=== PATIENT | female | born 1945 | race Caucasian/White ===

== ENCOUNTER 2018-05-07 07:08 | Emergency (ER) | payer MEDICARE, OTHER ==
[~2018-05-07] VITALS: Ht 160 cm; Wt 73.5 kg
[2018-05-07 07:39] LABS: BASO # 0.1 x10^3/uL (0.0-0.2); BASO % 1 % (0-3); EOS # 0.2 x10^3/uL (0.0-0.7); EOS % 3 % (0-3); HEMATOCRIT 42.7 % (36.0-47.0); HEMOGLOBIN 14.3 g/dL (12.0-15.5); LYMPH # 2.1 x10^3/uL (1.0-4.8); LYMPH % 28 % (24-48); MEAN CORPUSCULAR HEMOGLOBIN 27 pg (25-35); MEAN CORPUSCULAR HGB CONC 34 g/dL (31-37); MEAN CORPUSCULAR VOLUME 82 fL (79-100); MONO # 0.6 x10^3/uL (0.0-1.1); MONO % 8 % (0-9); NEUT # 4.5 x10^3uL (1.8-7.7); NEUT % 59 % (31-73); PLATELET COUNT 251 x10^3/uL (140-400); RED BLOOD COUNT 5.23 x10^6/uL (3.50-5.40); RED CELL DISTRIBUTION WIDTH 14.8 % (11.5-14.5); WHITE BLOOD COUNT 7.6 x10^3/uL (4.0-11.0)
--- NOTE | 2018-05-07 07:45 | RAD ---
CT brain without contrast. HISTORY: Seizure. CT scan of the brain was done without contrast. There is no intracranial hemorrhage or subdural hematoma. There is no mass or shift of the midline. Ventricles are normal in size. An acute CVA is not identified. Mild mucosal thickening in the ethmoid sinuses and sphenoid sinuses. IMPRESSION: 1. No intracranial hemorrhage or acute finding noted. PQRS Compliance Statement: One or more of the following individualized dose reduction techniques were utilized for this examination: 1. Automated exposure control 2. Adjustment of the mA and/or kV according to patient size 3. Use of iterative reconstruction technique Electronically signed by: Jose Fox MD (05/07/2018 7:41 AM) [facility]
[2018-05-07 07:52] LABS: ALBUMIN 3.5 g/dL (3.4-5.0); ALBUMIN/GLOBULIN RATIO 1.1 (1.0-1.7); GFR 54.7; POTASSIUM 3.9 mmol/L (3.5-5.1); TOTAL BILIRUBIN 0.4 mg/dL (0.2-1.0); TOTAL PROTEIN 6.7 g/dL (6.4-8.2)
[2018-05-07 08:27] LABS: PLATELET CLUMP PRESENT; PLT ESTIMATE ADEQUATE (ADEQUATE)
[2018-05-07] MEDS ORDERED: IV NORMAL SALINE 100ML 100 ML ONE (08:34)
[2018-05-07] MEDS ORDERED: levETIRAcetam 500 MG/5 ML VIAL IV ONE (08:34)
[2018-05-07 08:40] VITALS: BP 196/94
[2018-05-07] MEDS ORDERED: KETOROLAC 30 MG/ML VIAL. IV ONE (08:50)
[2018-05-07 08:52] LABS: BACTERIA,URINE 0 /HPF (0-FEW); BILIRUBIN,URINE NEG (NEG); CLARITY,URINE CLEAR; COLOR,URINE YELLOW; GLUCOSE,URINE NEG (NEG); HYALINE CASTS, URINE OCC /HPF; NITRITE,URINE NEG (NEG); RBC,URINE 0 /HPF (0-2); SQUAMOUS EPITHELIAL CELL,UR FEW /LPF; UROBILINOGEN,URINE 0.2 mg/dL (0.2 mg/dL); WBC,URINE 0 /HPF (0-4)
[2018-05-07] MEDS ORDERED: FLUT1DIS3 IH (09:03)
[2018-05-07] MEDS ORDERED: LEVE500T56 PO (09:03)
--- NOTE | 2018-05-07 09:03 | PHYS DOC ---
Past History Past Medical History: COPD, Seizure Past Surgical History: Knee Replacement, Tonsillectomy Alcohol Use: None Drug Use: None Adult General Chief Complaint Chief Complaint: SEIZURE HPI HPI Patient is a 73 year old female who brought in by EMS because of seizure. Patient's reported to EMS that patient had history of seizure but did not have a seizure for almost 20 years and stopped taking Dilantin last year. Patient had a generalized seizure with tonic and clonic activity that last about 15 minutes and then was in postictal condition for long time. EMS reported that patient was confused at their arrival with stable vital signs. Patient is mildly confused and stated she doesn't remember anything. Review of Systems Review of Systems Constitutional: Denies fever or chills [] Eyes: Denies change in visual acuity, redness, or eye pain [] HENT: Denies nasal congestion or sore throat [] Respiratory: Denies cough or shortness of breath [] Cardiovascular: No additional information not addressed in HPI [] GI: Denies abdominal pain, nausea, vomiting, bloody stools or diarrhea [] : Denies dysuria or hematuria [] Musculoskeletal: Denies back pain or joint pain [] Integument: Denies rash or skin lesions [] Neurologic: Reports headache, denies focal weakness or sensory changes [] Endocrine: Denies polyuria or polydipsia [] All other systems were reviewed and found to be within normal limits, except as documented in this note. Current Medications Current Medications Current Medications Medications (Trade) Dose Ordered Sig/Aly Start Time Stop Time Status Last Admin Dose Admin Ketorolac Tromethamine (Toradol 30mg Vial) 30 mg 1X ONCE 05/07/18 08:50 05/07/18 08:51 05/07/18 08:36 30 MG Levetiracetam (Keppra) 500 mg STK-MED ONCE 05/07/18 08:34 05/07/18 08:35 DC Levetiracetam 1000 mg/Sodium Chloride 100 ml @ 400 mls/hr 1X ONCE 05/07/18 08:30 05/07/18 08:44 DC Sodium Chloride 100 ml @ As Directed STK-MED ONCE 05/07/18 08:34 05/07/18 08:35 DC Allergies Allergies Allergies Coded Allergies Type Severity Reaction Last Updated Verified No Known Drug Allergies 05/07/18 No Physical Exam Physical Exam Constitutional: Well developed, well nourished, mild distress, non-toxic appearance. [] HENT: Normocephalic, contusion and edema left side of tongue related to biting her tongue during seizure, bilateral external ears normal, oropharynx moist, no oral exudates, nose normal. [] Eyes: PERRLA, EOMI, conjunctiva normal, no discharge. [] Neck: Normal range of motion, no tenderness, supple, no stridor. [] Cardiovascular:Heart rate regular rhythm, no murmur [] Lungs & Thorax: Bilateral breath sounds clear to auscultation [] Abdomen: Bowel sounds normal, soft, no tenderness, no masses, no pulsatile masses. [] Skin: Warm, dry, no erythema, no rash. [] Back: No tenderness, no CVA tenderness. [] Extremities: No tenderness, no cyanosis, no clubbing, ROM intact, no edema. [] Neurologic: Alert and oriented X 3 answering to questions with some pause, normal motor function, normal sensory function, no focal deficits noted. [] Psychologic: Affect normal, judgement normal, mood normal. [] Current Patient Data Vital Signs Vital Signs Date Time Temp Pulse Resp B/P (MAP) Pulse Ox O2 Delivery O2 Flow Rate FiO2 05/07/18 07:14 97.8 81 18 95 Room Air Lab Results Laboratory Tests Test 05/07/18 07:28 05/07/18 08:25 White Blood Count 7.6 x10^3/uL (4.0-11.0) Red Blood Count 5.23 x10^6/uL (3.50-5.40) Hemoglobin 14.3 g/dL (12.0-15.5) Hematocrit 42.7 % (36.0-47.0) Mean Corpuscular Volume 82 fL (79-100) Mean Corpuscular Hemoglobin 27 pg (25-35) Mean Corpuscular Hemoglobin Concent 34 g/dL (31-37) Red Cell Distribution Width 14.8 % (11.5-14.5) H Platelet Count 251 x10^3/uL (140-400) Neutrophils (%) (Auto) 59 % (31-73) Lymphocytes (%) (Auto) 28 % (24-48) Monocytes (%) (Auto) 8 % (0-9) Eosinophils (%) (Auto) 3 % (0-3) Basophils (%) (Auto) 1 % (0-3) Neutrophils # (Auto) 4.5 x10^3uL (1.8-7.7) Lymphocytes # (Auto) 2.1 x10^3/uL (1.0-4.8) Monocytes # (Auto) 0.6 x10^3/uL (0.0-1.1) Eosinophils # (Auto) 0.2 x10^3/uL (0.0-0.7) Basophils # (Auto) 0.1 x10^3/uL (0.0-0.2) Platelet Estimate Adequate (ADEQUATE) Platelet Clumps, EDTA Present Sodium Level 141 mmol/L (136-145) Potassium Level 3.9 mmol/L (3.5-5.1) Chloride Level 105 mmol/L (98-107) Carbon Dioxide Level 29 mmol/L (21-32) Anion Gap 7 (6-14) Blood Urea Nitrogen 12 mg/dL (7-20) Creatinine 1.0 mg/dL (0.6-1.0) Estimated GFR (Cockcroft-Gault) 54.7 BUN/Creatinine Ratio 12 (6-20) Glucose Level 107 mg/dL (70-99) H Calcium Level 9.0 mg/dL (8.5-10.1) Total Bilirubin 0.4 mg/dL (0.2-1.0) Aspartate Amino Transferase (AST) 49 U/L (15-37) H Alanine Aminotransferase (ALT) 72 U/L (14-59) H Alkaline Phosphatase 92 U/L (46-116) Troponin I Quantitative < 0.017 ng/mL (0-0.055) Total Protein 6.7 g/dL (6.4-8.2) Albumin 3.5 g/dL (3.4-5.0) Albumin/Globulin Ratio 1.1 (1.0-1.7) Urine Collection Type Unknown Urine Color Yellow Urine Clarity Clear Urine pH 6.5 Urine Specific [place] 1.020 Urine Protein Neg (NEG-TRACE) Urine Glucose (UA) Neg mg/dL (NEG) Urine Ketones (Stick) Neg mg/dL (NEG) Urine Blood Neg (NEG) Urine Nitrite Neg (NEG) Urine Bilirubin Neg (NEG) Urine Urobilinogen Dipstick 0.2 mg/dL (0.2 mg/dL) Urine Leukocyte Esterase Neg (NEG) Urine RBC 0 /HPF (0-2) Urine WBC 0 /HPF (0-4) Urine Squamous Epithelial Cells Few /LPF Urine Transitional Epithelial Cells Occ /LPF Urine Bacteria 0 /HPF (0-FEW) Urine Hyaline Casts Occ /HPF Urine Mucus Mod /LPF EKG EKG EKG interpreted by me. EKG showed normal sinus rhythm at rate of 80, nonspecific EKG abnormalities. Radiology/Procedures Radiology/Procedures [address] [address] IMAGING REPORT Signed PATIENT: RC MCQUEEN ACCOUNT: [id number] : 1945 LOCATION: ER AGE: 73 SEX: F EXAM STATUS: PRE ER ORD. PHYSICIAN: KENYATTA TAPIA MD REASON: seizure PROCEDURE: CT HEAD WO CONTRAST CT brain without contrast. HISTORY: Seizure. CT scan of the brain was done without contrast. There is no intracranial hemorrhage or subdural hematoma. There is no mass or shift of the midline. Ventricles are normal in size. An acute CVA is not identified. Mild mucosal thickening in the ethmoid sinuses and sphenoid sinuses. IMPRESSION: 1. No intracranial hemorrhage or acute finding noted. PQRS Compliance Statement: One or more of the following individualized dose reduction techniques were utilized for this examination: 1. Automated exposure control 2. Adjustment of the mA and/or kV according to patient size 3. Use of iterative reconstruction technique Electronically signed by: Jose Fox MD (05/07/2018 7:41 AM) [facility] DICTATED AND SIGNED BY: JOSE FOX MD DATE: 05/07/18 0740 CC: KENYATTA TAPIA MD ~ Course & Med Decision Making Course & Med Decision Making Pertinent Labs and Imaging studies reviewed. (See chart for details) Evaluation of patient in ER showed 73-year-old female patient with remote history of seizure disorder in by EMS because of episodes of seizure that last longer than her usual and postictal condition continues for longer time according to her . Patient had unremarkable physical exam and labs and CT head except for mild confusion that gradually improved and tongue contusion related to biting during seizure. Dr. Sherwood on-call neurologist was consulted at 0820 and recommended to load the patient with 1000 mg of Keppra and discharge patient home with Vicodin 100 mg of Keppra twice a day and follow up with his office on Thursday/ 2 days from now. Patient has history of COPD and currently is a smoker and requesting refill of Advair inhaler. Patient instructed about quit smoking. Dragon Disclaimer Dragon Disclaimer This electronic medical record was generated, in whole or in part, using a voice recognition dictation system. Critical Care Time Critical care time was 30 minutes exclusive of procedures. Departure Departure: Impression: Primary Impression: Seizure Additional Impressions: Tongue biting Elevated blood pressure reading without diagnosis of hypertension Tobacco abuse Tobacco abuse counseling Medication refill Headache Disposition: HOME, SELF-CARE (at 0 [phone]) Condition: IMPROVED Referrals: JOSE HOUSE (PCP) NILO SHERWOOD MD Patient Instructions: Form - Blood Pressure Record Sheet, How to Take Your Blood Pressure, [id number], Seizure, Adult, Smoking Cessation, Tips For Success Additional Instructions: Start taking seizure medication tonight Follow-up with Dr. Sherwood neurologist on Thursday Return to emergency room if not getting better Records your blood pressure and follow-up with your primary care physician in 5- 7 days regarding elevation of blood pressure Scripts Fluticasone/Salmeterol (ADVAIR 250-50 DISKUS) 1 Each Disk.w.dev 1 PUFF IH BID, #1 INHALER 0 Refills Prov: KENYATTA TAPIA MD 05/07/18 Levetiracetam (KEPPRA) 500 Mg Tablet 1 TAB PO BID, #60 TAB 0 Refills Prov: KENYATTA TAPIA MD 05/07/18 Problem Qualifiers KENYATTA TAPIA MD May 07, 2018 09:03
--- NOTE | 2018-05-07 09:58 | EKG ---
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
== END 2018-05-07 09:12 | disposition home or self-care (01) ==
LOC: ER 07:08
DX: R56.9 Unspecified convulsions (principal); R03.0 Elevated blood-pressure reading, without diagnosis of hypertension; R51 Headache; K14.8 Other diseases of tongue; J44.9 Chronic obstructive pulmonary disease, unspecified; Z76.0 Encounter for issue of repeat prescription; Z71.6 Tobacco abuse counseling; Z72.0 Tobacco use
CPT/HCPCS: 36415; 70450; 80053; 81001; 84484; 85025; 93005; 96365; 96375; 99285; J1885; J1953

== ENCOUNTER 2020-09-26 15:52 | Emergency (ER) | payer MEDICARE, OTHER ==
[~2020-09-26] VITALS: Ht 160 cm; Wt 74.3 kg
[~2020-09-26 15:52] MED LIST: FLUT1DIS3 IH; LEVE500T56 PO
[2020-09-26 16:00] VITALS: BP 161/92
--- NOTE | 2020-09-26 16:56 | PHYS DOC ---
Past History Past Medical History: Seizure (MARICARMEN KUNZ APRN) Past Surgical History: Knee Replacement, Tonsillectomy Additional Past Surgical Histo: Bilateral knee (MARICARMEN KUNZ APRN) Alcohol Use: None Drug Use: None (MARICAREMN KUNZ APRN) Adult General Chief Complaint Chief Complaint: ABDOMINAL PAIN [facility] HPI Patient is a 72-year-old female patient presents with right upper quadrant pain. Patient reports discomfort started approximately 1200 today, after she had been taking groceries inside the house from the car, up some stairs. Which she normally does not do. States she is here to have a aching pain to her right upper abdomen and without nausea or vomiting. States she has not eaten today, she had just had a donut for breakfast. States she never had this discomfort again. States that she is in the hospital, her discomfort has been improving, with discomfort down to 1 or 2 at this time. States the discomfort does seem to) to her back at times, states normal bowel movement last bowel was yesterday. Denies bloody stools. Denies constipation, states she is passing gas, states she has not been belching abnormally. (MARICARMEN KUNZ APRN) Review of Systems Review of Systems Constitutional: Denies fever or chills [] Eyes: Denies change in visual acuity, redness, or eye pain [] HENT: Denies nasal congestion or sore throat [] Respiratory: Denies cough or shortness of breath [] Cardiovascular: No additional information not addressed in HPI [] GI: Denies, vomiting, bloody stools or diarrhea [] reports generalized abdominal pain, right upper quadrant : Denies dysuria or hematuria [] Musculoskeletal: Denies back pain or joint pain [] does report discomfort from her abdomen moves into her back intermittently Integument: Denies rash or skin lesions [] Neurologic: Denies headache, focal weakness or sensory changes [] Endocrine: Denies polyuria or polydipsia [] All other systems were reviewed and found to be within normal limits, except as documented in this note. (MARICARMEN KUNZ APRN) Allergies Allergies Allergies Coded Allergies Type Severity Reaction Last Updated Verified latex Allergy Unknown 09/26/20 Yes (MARICARMEN KUNZ APRN) Physical Exam Physical Exam Constitutional: Well developed, well nourished, no acute distress, non-toxic appearance. [] HENT: Normocephalic, atraumatic, bilateral external ears normal, oropharynx moist, no oral exudates, nose normal. [] Eyes: PERRLA, EOMI, conjunctiva normal, no discharge. [] Neck: Normal range of motion, no tenderness, supple, no stridor. [] Cardiovascular:Heart rate regular rhythm, no murmur [] Lungs & Thorax: Bilateral breath sounds clear to auscultation [] Abdomen: Bowel sounds normal, soft,, no masses, no pulsatile masses. [] Tenderness to right upper quadrant. Positive Infante sign. Skin: Warm, dry, no erythema, no rash. [] Back: No tenderness, no CVA tenderness. [] Extremities: No tenderness, no cyanosis, no clubbing, ROM intact, no edema. [] Neurologic: Alert and oriented X 3, normal motor function, normal sensory function, no focal deficits noted. [] Psychologic: Affect normal, judgement normal, mood normal. [] (MARICARMEN KUNZ APRN) Current Patient Data Vital Signs Vital Signs Date Time Temp Pulse Resp B/P (MAP) Pulse Ox O2 Delivery O2 Flow Rate FiO2 09/26/20 16:00 96.4 84 18 161/92 (115) 98 Room Air (MARICARMEN KUNZ APRN) Lab Results Laboratory Tests Test 09/26/20 16:05 09/26/20 16:30 Urine Collection Type Unknown Urine Color Straw Urine Clarity Clear Urine pH 7.0 Urine Specific [place] 1.015 Urine Protein Neg (NEG-TRACE) Urine Glucose (UA) Neg mg/dL (NEG) Urine Ketones (Stick) Neg mg/dL (NEG) Urine Blood Neg (NEG) Urine Nitrite Neg (NEG) Urine Bilirubin Neg (NEG) Urine Urobilinogen Dipstick 0.2 mg/dL (0.2 mg/dL) Urine Leukocyte Esterase Neg (NEG) Urine RBC 1-2 /HPF (0-2) Urine WBC Rare /HPF (0-4) Urine Squamous Epithelial Cells Mod /LPF Urine Bacteria 0 /HPF (0-FEW) White Blood Count 7.2 x10^3/uL (4.0-11.0) Red Blood Count 4.85 x10^6/uL (3.50-5.40) Hemoglobin 13.5 g/dL (12.0-15.5) Hematocrit 41.1 % (36.0-47.0) Mean Corpuscular Volume 85 fL (79-100) Mean Corpuscular Hemoglobin 28 pg (25-35) Mean Corpuscular Hemoglobin Concent 33 g/dL (31-37) Red Cell Distribution Width 14.6 % (11.5-14.5) Platelet Count 274 x10^3/uL (140-400) Neutrophils (%) (Auto) 51 % (31-73) Lymphocytes (%) (Auto) 32 % (24-48) Monocytes (%) (Auto) 12 % (0-9) Eosinophils (%) (Auto) 5 % (0-3) Basophils (%) (Auto) 1 % (0-3) Neutrophils # (Auto) 3.7 x10^3uL (1.8-7.7) Lymphocytes # (Auto) 2.3 x10^3/uL (1.0-4.8) Monocytes # (Auto) 0.8 x10^3/uL (0.0-1.1) Eosinophils # (Auto) 0.3 x10^3/uL (0.0-0.7) Basophils # (Auto) 0.1 x10^3/uL (0.0-0.2) Sodium Level 141 mmol/L (136-145) Potassium Level 4.2 mmol/L (3.5-5.1) Chloride Level 102 mmol/L (98-107) Carbon Dioxide Level 31 mmol/L (21-32) Anion Gap 8 (6-14) Blood Urea Nitrogen 8 mg/dL (7-20) Creatinine 0.9 mg/dL (0.6-1.0) Estimated GFR (Cockcroft-Gault) 61.4 BUN/Creatinine Ratio 9 (6-20) Glucose Level 110 mg/dL (70-99) Calcium Level 8.8 mg/dL (8.5-10.1) Total Bilirubin 0.2 mg/dL (0.2-1.0) Aspartate Amino Transf (AST/SGOT) 14 U/L (15-37) Alanine Aminotransferase (ALT/SGPT) 20 U/L (14-59) Alkaline Phosphatase 133 U/L (46-116) Troponin I Quantitative < 0.017 ng/mL (0-0.055) Total Protein 7.2 g/dL (6.4-8.2) Albumin 3.5 g/dL (3.4-5.0) Albumin/Globulin Ratio 0.9 (1.0-1.7) Lipase 193 U/L (73-393) (PERRY GUADARRAMA MD) EKG EKG []no STEMI per Dr Pyle. Normal sinus rhythm @ 74. normal axis. normal intervals. (MARICARMEN KUNZ APRN) Radiology/Procedures Radiology/Procedures []PROCEDURE: CT ABD PELV W/ IV CONTRST ONLY Exam: CT of abdomen and pelvis with contrast INDICATION: Right upper quadrant pain TECHNIQUE: Sequential axial images through the abdomen and pelvis obtained following the administration of 75 mL of Isovue-370 IV contrast. Sagittal and coronal reformatted images were reconstructed from the axial data and reviewed. Comparisons: None FINDINGS: Heart size is normal. No perinephric visualized lung bases are clear. No pleural effusion. Liver, spleen, pancreas, gallbladder and adrenals are unremarkable. No perinephric inflammation or hydronephrosis. No renal or ureteral calculi are identified. There is a cystic lesion at the upper pole of the right kidney likely representing simple cysts. Bladder is distended and appears thin-walled. Uterus is nonenlarged. There is a cystic lesion at the left adnexa which measures approximately 3.6 cm. Diverticulosis noted at the sigmoid colon without evidence of acute diverticulitis. Remainder of the large and small bowel are unremarkable. Appendix is normal. No free abdominal air or fluid. No obstruction. Abdominal aorta has a normal course and caliber. Abdominal vasculature is patent. No enlarged intra-abdominal lymph nodes are identified. No suspicious osseous lesions or acute fractures. IMPRESSION: 1. No acute process identified within the abdomen or pelvis. 2. Cystic lesion at the left adnexa, likely representing cyst in the left ovary completely evaluated on this exam. 3. Diverticulosis without evidence of acute diverticulitis. Exposure: One or more of the following in the visualized dose reduction techniques were utilized for this examination: 1. Automated exposure control 2. Adjustment of the MA and/or KV according to patient size 3. Use of iterative of reconstructive technique Electronically signed by: Ruy Corral MD (09/26/2020 5:40 PM) [facility] PROCEDURE: CHEST AP ONLY Exam: Chest one view INDICATION: Right upper quadrant pain TECHNIQUE: Frontal view of the chest Comparisons: None FINDINGS: The cardiomediastinal silhouette and pulmonary vessels are within normal limits. The lung and pleural spaces are clear. IMPRESSION: No acute cardiopulmonary process. Electronically signed by: Ruy Corral MD (09/26/2020 5:43 PM) [facility] DICTATED AND SIGNED BY: RUY CORRAL MD (MARICARMEN KUNZ APRN) Heart Score HEART Score for Chest Pain: HEART Score for Chest Pain Response (Comments) Value History Slighlty/Non-Suspicious 0 ECG Normal 0 Age > 65 2 Risk Factors 1 or 2 Risk Factors 1 Troponin < Normal Limit 0 Total 3 Risk Factors: Risk Factors: DM, Current or recent (<one month) smoker, HTN, HLP, family history of CAD, obesity. Risk Scores: Risk Factors: DM, Current or recent (<one month) smoker, HTN, HLP, family history of CAD, obesity. (MARICARMEN KUNZ APRN) Course & Med Decision Making Course & Med Decision Making Pertinent Labs and Imaging studies reviewed. (See chart for details) []Reviewed labs with imaging, without abnormalities. Patient reports she was just concerned over the discomfort. Will plan to discharge on NSAIDs. Patient in agreement with plan without further questions or concerns (MARICARMEN KUNZ APRN) Course & Med Decision Making I did not see or evaluate this patient. Did not discuss patient's care with PA. Appears note was signed before my shift started on the [facility] reading room. Otherwise agree with note work-up and disposition. (PERRY GUADARRAMA MD) Dragon Disclaimer Dragon Disclaimer This electronic medical record was generated, in whole or in part, using a voice recognition dictation system. (MARICARMEN KUNZ APRN) Departure Departure: Impression: Primary Impression: Rib pain on right side Disposition: 01 DC HOME SELF CARE/HOMELESS Condition: STABLE Referrals: ADIN VILLAGRAN (PCP) Patient Instructions: Abdominal Pain Additional Instructions: As we discussed, you should take ibuprofen for the next 3 days on a regular basis, take 2 of over the counter ibuprofen every 6 hours for the next 3 days to help with inflammation which may be causing discomfort. Follow-up with your primary care provider in the next week to make sure you are improving MARICARMEN KUNZ APRN Sep 26, 2020 16:56 PERRY GUADARRAMA MD Sep 26, 2020 20:57
[2020-09-26] MEDS ORDERED: IOHEXOL 300 MG/ML 75 ML VIAL. IV ONE (17:00)
[2020-09-26] MEDS ORDERED: CONTRAST GIVEN. MC PRN (17:00)
--- NOTE | 2020-09-26 17:07 | EKG ---
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
[2020-09-26 17:08] LABS: BASO # 0.1 x10^3/uL (0.0-0.2); BASO % 1 % (0-3); EOS # 0.3 x10^3/uL (0.0-0.7); EOS % 5 % (0-3); HEMATOCRIT 41.1 % (36.0-47.0); HEMOGLOBIN 13.5 g/dL (12.0-15.5); LYMPH # 2.3 x10^3/uL (1.0-4.8); LYMPH % 32 % (24-48); MEAN CORPUSCULAR HEMOGLOBIN 28 pg (25-35); MEAN CORPUSCULAR HGB CONC 33 g/dL (31-37); MEAN CORPUSCULAR VOLUME 85 fL (79-100); MONO # 0.8 x10^3/uL (0.0-1.1); MONO % 12 % (0-9); NEUT # 3.7 x10^3uL (1.8-7.7); NEUT % 51 % (31-73); PLATELET COUNT 274 x10^3/uL (140-400); RED BLOOD COUNT 4.85 x10^6/uL (3.50-5.40); RED CELL DISTRIBUTION WIDTH 14.6 % (11.5-14.5); WHITE BLOOD COUNT 7.2 x10^3/uL (4.0-11.0)
[2020-09-26 17:09] LABS: CALCIUM 8.8 mg/dL (8.5-10.1); CREATININE 0.9 mg/dL (0.6-1.0); GFR 61.4; POTASSIUM 4.2 mmol/L (3.5-5.1)
[2020-09-26 17:15] LABS: ALBUMIN 3.5 g/dL (3.4-5.0); ALBUMIN/GLOBULIN RATIO 0.9 (1.0-1.7); TOTAL BILIRUBIN 0.2 mg/dL (0.2-1.0); TOTAL PROTEIN 7.2 g/dL (6.4-8.2)
[2020-09-26 17:27] LABS: BACTERIA,URINE 0 /HPF (0-FEW); BILIRUBIN,URINE NEG (NEG); CLARITY,URINE CLEAR; COLOR,URINE STRAW; GLUCOSE,URINE NEG (NEG); NITRITE,URINE NEG (NEG); SQUAMOUS EPITHELIAL CELL,UR MOD /LPF; UROBILINOGEN,URINE 0.2 mg/dL (0.2 mg/dL); WBC,URINE RARE /HPF (0-4)
--- NOTE | 2020-09-26 17:42 | RAD ---
Exam: CT of abdomen and pelvis with contrast INDICATION: Right upper quadrant pain TECHNIQUE: Sequential axial images through the abdomen and pelvis obtained following the administrati on of 75 mL of Isovue-370 IV contrast. Sagittal and coronal reformatted images were reconstructed fro m the axial data and reviewed. Comparisons: None FINDINGS: Heart size is normal. No perinephric visualized lung bases are clear. No pleural effusion. Liver, spleen, pancreas, gallbladder and adrenals are unremarkable. No perinephric inflammation or hydronephrosis. No renal or ureteral calculi are identified. There is a cystic lesion at the upper pole of the right kidney likely representing simple cysts. Bladder is distended and appears thin-walled. Uterus is nonenlarged. There is a cystic lesion at the left adnexa which measures approximately 3.6 cm. Diverticulosis noted at the sigmoid colon without evidence of acute diverticulitis. Remainder of the large and small bowel are unremarkable. Appendix is normal. No free abdominal air or fluid. No obstru ction. Abdominal aorta has a normal course and caliber. Abdominal vasculature is patent. No enlarged intra-abdominal lymph nodes are identified. No suspicious osseous lesions or acute fractures. IMPRESSION: 1. No acute process identified within the abdomen or pelvis. 2. Cystic lesion at the left adnexa, likely representing cyst in the left ovary completely evaluated on this exam. 3. Diverticulosis without evidence of acute diverticulitis. Exposure: One or more of the following in the visualized dose reduction techniques were utilized for this examination: 1. Automated exposure control 2. Adjustment of the MA and/or KV according to patient size 3. Use of iterative of reconstructive technique Electronically signed by: Ruy Miranda MD (09/26/2020 5:40 PM) [facility]
--- NOTE | 2020-09-26 17:46 | RAD ---
Exam: Chest one view INDICATION: Right upper quadrant pain TECHNIQUE: Frontal view of the chest Comparisons: None FINDINGS: The cardiomediastinal silhouette and pulmonary vessels are within normal limits. The lung and pleural spaces are clear. IMPRESSION: No acute cardiopulmonary process. Electronically signed by: Ruy Miranda MD (09/26/2020 5:43 PM) [facility]
== END 2020-09-26 19:00 | disposition home or self-care (01) ==
LOC: ER 15:52
DX: R07.81 Pleurodynia (principal); R10.84 Generalized abdominal pain; R10.11 Right upper quadrant pain; Z91.040 Latex allergy status
CPT/HCPCS: 36415; 71045; 74177; 80053; 81001; 83690; 84484; 85025; 93005; 99285; Q9967

== ENCOUNTER 2021-06-11 22:37 | Emergency (ER) | payer MEDICARE, OTHER ==
[~2021-06-11] VITALS: Ht 160 cm; Wt 70.0 kg
--- NOTE | 2021-06-11 23:38 | PHYS DOC ---
Past History Past Medical History: COPD, Seizure (OANH OBREGON APRN) Past Surgical History: Knee Replacement, Tonsillectomy Additional Past Surgical Histo: Bilateral knee (OANH OBREGON APRN) Alcohol Use: None Drug Use: None (OANH OBREGON APRN) General Adult EDM: Chief Complaint: RIB PAIN HPI: HPI: Patient is a 76-year-old female presents with left rib pain and mid back pain. Patient states a few days ago she tripped over an exercise bike and rolled onto the carpet onto her left side. Patient took half a hydrocodone at 4 PM which helped with the pain. Patient reports that pain is increased with taking deep breaths and improved with slouching forward. (OANH OBREGON APRN) Review of Systems: Review of Systems: Constitutional: Denies fever or chills Eyes: Denies change in visual acuity HENT: Denies nasal congestion or sore throat Respiratory: Reports chronic cough, denies shortness of breath Cardiovascular: Denies chest pain or edema GI: Denies abdominal pain, nausea, vomiting, bloody stools or diarrhea : Denies dysuria Musculoskeletal: Reports mid back pain Integument: Denies rash Neurologic: Denies headache, focal weakness or sensory changes Endocrine: Denies polyuria or polydipsia Lymphatic: Denies swollen glands Psychiatric: Denies depression or anxiety (OANH OBREGON APRN) Allergies: Allergies: Allergies Coded Allergies Type Severity Reaction Last Updated Verified latex Allergy Unknown 09/26/20 Yes (OANH OBREGON APRN) Physical Exam: PE: Constitutional: Well developed, well nourished, no acute distress, non-toxic appearance. [] HENT: Normocephalic, atraumatic, bilateral external ears normal, oropharynx moist, no oral exudates, nose normal. [] Eyes: PERRLA, EOMI, conjunctiva normal, no discharge. [] Neck: Normal range of motion, no tenderness, supple, no stridor. [] Cardiovascular:Heart rate regular rhythm, no murmur [] Lungs & Thorax: Bilateral breath sounds clear to auscultation [] Abdomen: Bowel sounds normal, soft, no tenderness, no masses, no pulsatile masses. [] Skin: Warm, dry, no erythema, no rash. [] Back: Mid, back tenderness, left-sidedrib pain Extremities: No tenderness, no cyanosis, no clubbing, ROM intact, no edema. [] Neurologic: Alert and oriented X 3, normal motor function, normal sensory function, no focal deficits noted. [] Psychologic: Affect normal, judgement normal, mood normal. [] (OANH OBREGON APRN) Current Patient Data: Vital Signs: Vital Signs Date Time Temp Pulse Resp B/P (MAP) Pulse Ox O2 Delivery O2 Flow Rate FiO2 06/11/21 22:55 97.7 92 22 173/100 (124) 96 Room Air (OANH OBREGON APRN) EKG: EKG: [] (OANH OBREGON APRN) Radiology/Procedures: Radiology/Procedures: [] (OANH OBREGON APRN) Radiology/Procedures: PROCEDURE: RIBS LEFT 2V, LUMBAR SPINE 3V Examination: 3 views lumbar spine, 2 views of the left ribs HISTORY: History of fall, low back pain, left chest pain COMPARISON: None available FINDINGS: The lumbar vertebral body heights are maintained. Moderate facet degenerative changes. Mild intervertebral disc height loss identified in the lumbar spine likely degenerative changes. No evidence of displaced left rib fracture. IMPRESSION: 1. Moderate degenerative changes lumbar spine. 2. No evidence of displaced left rib fracture. Electronically signed by: Gadiel Bradley MD (06/12/2021 3:11 AM) [id number] (CARLINE CASTILLO DO) Heart Score: C/O Chest Pain: No Risk Factors: Risk Factors: DM, Current or recent (<one month) smoker, HTN, HLP, family history of CAD, obesity. Risk Scores: Score 0 - 3: 2.5% MACE over next 6 weeks - Discharge Home Score 4 - 6: 20.3% MACE over next 6 weeks - Admit for Clinical Observation Score 7 - 10: 72.7% MACE over next 6 weeks - Early Invasive Strategies (OANH OBREGON APRN) Course & Med Decision Making: Course & Med Decision Making Pertinent Labs and Imaging studies reviewed. (See chart for details) [] 72-year-old female presents with left rib pain and mid thoracic back pain. Patient tripped on a exercise bike and fell onto carpeted floor. Denies hitting head, loss of consciousness. Pain is worse with deep breath . Denies shortness of breath. Lumbar and left rib x-ray ordered to rule out fracture. Lumbar and rib x-rays are unremarkable. Discussed results with patient. Patient given hydrocodone in the ER for pain. Hydrocodone sent to pharmacy until she can follow-up with PCP. Patient given incentive spirometer and instructions on how to use. Advised patient to call her PCP and make a follow- up appointment in the next 2 to 3 days. Discussed return precautions. Patient is hemodynamically stable upon disposition. (OANH OBREGON APRN) Kristi Disclaimer: Kristi Disclaimer: This electronic medical record was generated, in whole or in part, using a voice recognition dictation system. (OANH OBREGON APRN) Departure Departure: Impression: Primary Impression: Rib pain on left side Additional Impression: Back pain Qualified Codes: M54.6 - Pain in thoracic spine Disposition: HOME / SELF CARE / HOMELESS Condition: STABLE Referrals: ADIN VILLAGRAN (PCP) Patient Instructions: Rib Contusion Additional Instructions: You were seen in the emergency room for left-sided rib pain and back pain. X- rays were unremarkable. You most likely have a rib contusion. I am sending you home with a prescription for hydrocodone to use as needed for pain. Please take 1/2 to 1 tablet as needed for pain. I am sending you also home with an incentive spirometer to help prevent pneumonia. Please call your PCP make a follow-up appointment in the next 2 to 3 days. EMERGENCY DEPARTMENT GENERAL DISCHARGE INSTRUCTIONS Thank you for coming to [facility] (ED) today and trusting us with you care. We trust that you had a positivie experience in our Emergency Department. If you wish to speak to the department management, you may call the director at [phone]. YOUR FOLLOW UP INSTRUCTIONS ARE FOLLOWS: 1. Do you have a private Doctor? If you do not have a private doctor, please ask for a resource list of physicians or clinics that may be able to assist you with follow up care. 2. The Emergency Physician has interpreted your x-rays. The X-Ray specialist will also review them. If there is a change in the findings, you will be notified in 48 hours when at all possible. 3. A lab test or culture has been done, your results will be reviewed and you will be notified if you need a change in treatment. ADDITIONAL INSTRUCTIONS AND INFORMATION: 1. Your care today has been supervised by a physician who is specially trained in emergency care. Many problems require more than one evaluation for a complete diagnosis and treatment. We recommend that you schedule your follow up appointment as recommended to ensure complete treatment of you illness or injury. If you are unable to obtain follow up care and continue to have a problem, or if your condition worsens, we recommend that you return to the ED. 2. We are not able to safely determine your condition over the phone nor are we able to give sound medical advice over the phone. For these safety reasons, if you call for medical advice we will ask you to come to the ED for further evaluation. 3. If you have any questions regarding these discharge instructions please call the ED at [phone]. SAFETY INFORMATION: In the interest of safety, wellness, and injury prevention; we encourage you to wear your sealbelt, if you smoke; quite smoking, and we encourage family to use a protective helmet for bicycling and other sporting events that present an increased risk for head injury. IF YOUR SYMPTOMS WORSEN OR NEW SYMPTOMS DEVELOP, OR YOU HAVE CONCERNS ABOUT YOUR CONDITION; OR IF YOUR CONDITION WORSENS WHILE YOU ARE WAITING FOR YOUR FOLLOW UP APPOINTMENT; EITHER CONTACT YOUR PRIMARY CARE DOCTOR, THE PHYSICIAN WHOSE NAME AND NUMBER YOU WERE GIVEN, OR RETURN TO THE ED IMMEDIATELY. Scripts Hydrocodone Bit/Acetaminophen (HYDROCODONE-APAP 5-325 ) 1 Each Tablet 0.5-1 TAB PO PRN Q6HRS PRN for PAIN for 3 Days, #12 TAB 0 Refills Prov: OANH OBREGON APRN 06/12/21 Attending Signature Attending Signature I have reviewed the PA/COLLABORATING SUPERVISING PHYSICIAN's note and plan of care. I was available for consultation as needed during the patient's visit in the emergency department. I agree with the clinical impression, plan, and disposition. (CARLINE CASTILLO DO) OANH OBREGON APRN Jun 11, 2021 23:38 CARLINE CASTILLO DO Jun 19, 2021 06:46
[2021-06-12] MEDS ORDERED: HYDROcodone/APAP 5/325MG 1 TAB TABLET PO ONE
[2021-06-12] MEDS ORDERED: HYDR-2155 PO (01:06)
[2021-06-12 01:10] VITALS: BP 145/86
--- NOTE | 2021-06-12 03:14 | RAD ---
Examination: 3 views lumbar spine, 2 views of the left ribs HISTORY: History of fall, low back pain, left chest pain COMPARISON: None available FINDINGS: The lumbar vertebral body heights are maintained. Moderate facet degenerative changes. Mild intervert ebral disc height loss identified in the lumbar spine likely degenerative changes. No evidence of dis placed left rib fracture. IMPRESSION: 1. Moderate degenerative changes lumbar spine. 2. No evidence of displaced left rib fracture. Electronically signed by: Gadiel Bradley MD (06/12/2021 3:11 AM) [id number]
== END 2021-06-12 01:24 | disposition home or self-care (01) ==
LOC: ER 22:37
DX: R07.81 Pleurodynia (principal); M54.6 Pain in thoracic spine; R05.3 Chronic cough; J44.9 Chronic obstructive pulmonary disease, unspecified; Z91.040 Latex allergy status; W22.8XXA Striking against or struck by other objects, initial encounter; Y93.89 Activity, other specified; Y92.89 Other specified places as the place of occurrence of the external cause; Y99.8 Other external cause status
CPT/HCPCS: 71100; 72110; 99285